=== PATIENT | male | born 1945 | race Caucasian/White ===

== ENCOUNTER 2022-01-11 16:34 | Observation (INO) ==
[2022-01-11 17:15] LABS: Basophils # 0.1 10*3/uL (0.0-0.2); Basophils % 0.9 % (0.0-0.8); Eosinophils # 0.2 10*3/uL (0.0-0.87); Eosinophils % 3.8 % (0.00-10.9); Hematocrit 41.9 VOL% (42.0-52.0); Immature Granulocytes % 0.2 %; Immature Granulocytes Absolute 0.01 #; Lymphocytes # 2.2 10*3/uL (1.4-4.0); Mean Corpuscular HGB Conc 33.4 GM/DL (32-36); Mean Corpuscular Volume 91.3 FL (87-102); Mean Platelet Volume 10.2 FL (9.6-12.0); Monocytes # 0.6 10*3/uL (0.11-0.8); Monocytes % 10.3 % (1.7-12.7); Neutrophils % 45.8 % (38.7-73.9); Platelet Count 221 T/CUMM (130-400); Red Blood Count 4.59 MC/CUMM (3.8-5.5); Red Cell Distribution Width 12.7 % (9.3-17.3); White Blood Count 5.5 T/CUMM (4-12)
[2022-01-11 17:41] LABS: Alanine Aminotransferase 19 U/L (16-61); Albumin 3.3 G/DL (3.4-5.0); Alkaline Phosphatase 109 U/L (45-117); Aspartate Amino Transferase 19 U/L (0-37); Bilirubin,Total < 0.39 MG/DL (0.20-1.00); Blood Urea Nitrogen 18 MG/DL (7-18); Calcium 8.8 MG/DL (8.5-10.1); Carbon Dioxide 24 MMOL/L (21-32); Chloride 108 MMOL/L (98-107); Glucose 109 MG/DL (74-106); Osmolality,Calculated 279.5 MOS/KG (273-304); Potassium 4.1 MMOL/L (3.5-5.1); Sodium 139 MMOL/L (136-145); Total Protein 6.3 G/DL (6.4-8.2)
[2022-01-11] MEDS ORDERED: ALBUTEROL/IPRATROPIUM 3 ML NEB RESP TX STA (20:13)
[2022-01-11] MEDS ORDERED: MORPHINE 2 MG/1 ML SYRINGE IV PRN (20:24)
[2022-01-11] MEDS ORDERED: NICOTINE 21 MG/24 HR PATCH TRANSDERM PRN (20:24)
[2022-01-11] MEDS ORDERED: ONDANSETRON 4 MG/2 ML VIAL IV PRN (20:24)
[2022-01-11] MEDS ORDERED: hydrALAZINE 20 MG/1 ML VIAL IV PRN (20:24)
[2022-01-11] MEDS ORDERED: GLUCAGON 1 MG VIAL IM PRN (20:24)
[2022-01-11] MEDS ORDERED: guaiFENesin/DM ER 600-30 MG TABLET PO PRN (20:24)
[2022-01-11] MEDS ORDERED: ACETAMINOPHEN 325 MG TABLET PO PRN (20:24)
[2022-01-11] MEDS ORDERED: BISACODYL 5 MG TABLET PO PRN (20:24)
[2022-01-11] MEDS ORDERED: diphenhydrAMINE CAP 25 MG CAPSULE PO PRN (20:24)
[2022-01-11] MEDS ORDERED: DEXTROSE 10% 250 ML BAG IV PRN (20:39)
[2022-01-11 20:54] LABS: Arterial Base Excess iSTAT 0 MMOL/L (-2.5-2.5); Arterial Bicarbonate iSTAT 21.4 MMOL/L (20-26); Arterial O2 Saturation iSTAT 97 % (95-100); Arterial PCO2 iSTAT 26 MM HG (35-48); Arterial PO2 iSTAT 77 MM HG (80-95); Arterial Total CO2 iSTAT 22 MMO/L (23-27); Arterial pH iSTAT 7.523 (7.35-7.45)
[2022-01-11] MEDS: HEPARIN 5,000 UNIT/1 ML VIAL SUBCUT SCH (22:36)
[2022-01-11] MEDS: ZALEPLON 5 MG CAPSULE PO PRN (23:59)
[2022-01-12 04:36] LABS: Basophils % 0.5 % (0.0-0.8); Eosinophils # 0.2 10*3/uL (0.0-0.87); Eosinophils % 3.3 % (0.00-10.9); Hematocrit 40.2 VOL% (42.0-52.0); Immature Granulocytes % 0.2 %; Immature Granulocytes Absolute 0.01 #; Lymphocytes % 33.6 % (21.2-54.2); Mean Corpuscular HGB Conc 32.3 GM/DL (32-36); Mean Corpuscular Volume 92.2 FL (87-102); Monocytes # 0.6 10*3/uL (0.11-0.8); Monocytes % 9.5 % (1.7-12.7); Neutrophils % 52.9 % (38.7-73.9); Platelet Count 190 T/CUMM (130-400); Red Blood Count 4.36 MC/CUMM (3.8-5.5); Red Cell Distribution Width 12.6 % (9.3-17.3)
[2022-01-12 04:56] LABS: Calcium 8.8 MG/DL (8.5-10.1); Osmolality,Calculated 279.4 MOS/KG (273-304); Potassium 4.2 MMOL/L (3.5-5.1)
[2022-01-12] MEDS: ALBUTEROL/IPRATROPIUM 3 ML NEB RESP TX SCH ×4 (07:04→20:00)
[2022-01-12 07:05] LABS: Arterial Base Excess iSTAT -1 MMOL/L (-2.5-2.5); Arterial Bicarbonate iSTAT 24.5 MMOL/L (20-26); Arterial O2 Saturation iSTAT 98 % (95-100); Arterial PCO2 iSTAT 45 MM HG (35-48); Arterial PO2 iSTAT 106 MM HG (80-95); Arterial Total CO2 iSTAT 26 MMO/L (23-27); Arterial pH iSTAT 7.348 (7.35-7.45)
[2022-01-12] MEDS: PANTOPRAZOLE 40 MG TABLET PO SCH (09:08)
[2022-01-12] MEDS: ESCITALOPRAM 10 MG TABLET PO SCH (09:08)
[2022-01-12] MEDS: HEPARIN 5,000 UNIT/1 ML VIAL SUBCUT SCH ×2 (09:09→21:04)
[2022-01-12] MEDS ORDERED: GABAPENTIN 300 MG CAPSULE PO SCH (21:00)
[2022-01-12] MEDS: ZALEPLON 5 MG CAPSULE PO PRN (21:04)
[2022-01-13] MEDS: ALBUTEROL/IPRATROPIUM 3 ML NEB RESP TX SCH ×2 (00:02→07:21)
[2022-01-13 05:38] LABS: Basophils % 0.9 % (0.0-0.8); Eosinophils # 0.2 10*3/uL (0.0-0.87); Eosinophils % 3.7 % (0.00-10.9); Hematocrit 38.8 VOL% (42.0-52.0); Hemoglobin 12.5 GM/DL (14.0-18.0); Immature Granulocytes % 0.2 %; Immature Granulocytes Absolute 0.01 #; Lymphocytes # 1.7 10*3/uL (1.4-4.0); Lymphocytes % 37.7 % (21.2-54.2); Mean Corpuscular HGB Conc 32.2 GM/DL (32-36); Mean Platelet Volume 10.1 FL (9.6-12.0); Monocytes # 0.5 10*3/uL (0.11-0.8); Monocytes % 10.3 % (1.7-12.7); Neutrophils % 47.2 % (38.7-73.9); Platelet Count 205 T/CUMM (130-400); Red Blood Count 4.17 MC/CUMM (3.8-5.5); Red Cell Distribution Width 12.9 % (9.3-17.3); White Blood Count 4.4 T/CUMM (4-12)
[2022-01-13 06:03] LABS: Calcium 8.5 MG/DL (8.5-10.1); Osmolality,Calculated 281.3 MOS/KG (273-304); Potassium 3.9 MMOL/L (3.5-5.1)
[2022-01-13] MEDS: PANTOPRAZOLE 40 MG TABLET PO SCH (09:04)
[2022-01-13] MEDS: HEPARIN 5,000 UNIT/1 ML VIAL SUBCUT SCH (09:04)
[2022-01-13] MEDS: ESCITALOPRAM 10 MG TABLET PO SCH (09:04)
[2022-01-13 12:17] VITALS: BP 101/65
== END 2022-01-13 13:30 | disposition home or self-care (01) ==
LOC: N.EDINP 16:34 → N.ED 16:34 → SUATTDRO 20:24 → N.TELEN 22:36
PROVIDERS: ADMIT Internal Medicine; ATTEND Family Medicine